=== PATIENT | female | born 1940 | race Caucasian/White ===

== ENCOUNTER 2017-05-20 13:52 | Inpatient (IN) ==
[2017-05-20] MEDS ORDERED: Nystatin Cream 15 GM TUBE TP PRN (18:54)
[2017-05-20] MEDS ORDERED: (Alendronate Sodium [Fosamax] 70 MG) PO SCH (19:00)
[2017-05-20] MEDS ORDERED: Insulin DETEMIR 100 UNIT/ML per UNIT SQ ONE (21:09)
[2017-05-20] MEDS: Gabapentin 400 MG CAPSULE PO SCH (21:47)
[2017-05-20] MEDS: traMADol 50 MG TABLET PO PRN (21:48)
[2017-05-20] MEDS: Famotidine 20 MG TABLET PO SCH (22:20)
[2017-05-20] MEDS: Budesonide/Formoterol 160/4.5 MDI IH SCH (22:22)
[2017-05-20] MEDS: (Diclofenac Sodium [Voltaren] 1 APPL) TP SCH (22:22)
[2017-05-21 06:30] LABS: Basophils % 0.4 %; Eosinophils # 0.1 K/mcL (0.0-0.6); Eosinophils % 0.8 %; Hematocrit 28.2 % (35.3-44.9); Hemoglobin 8.3 g/dL (11.5-15.4); Immature Granulocytes % 0.5 % (0-4); Lymphocytes # 1.2 K/mcL (0.6-4.6); Lymphocytes % 15.5 %; Mean Corpuscular HGB Conc 29.4 g/dL (31.6-35.5); Mean Corpuscular Hemoglobin 24.2 pg (28.0-33.3); Mean Corpuscular Volume 82.2 fL (83.0-100.0); Mean Platelet Volume 10.5 fL (9.4-12.4); Monocytes # 0.6 K/mcL (0.0-1.3); Neutrophils # 5.7 K/mcL (1.6-8.9); Platelet Count 144 K/mcL (140-400); Red Blood Count 3.43 M/mcL (3.82-4.97); Red Cell Distribution Width 24.5 % (11.5-14.5); Segmented Neutrophils % 74.8 %
[2017-05-21 06:41] LABS: Prothrombin Time 11.1 Seconds (9.4-12.1)
[2017-05-21 06:42] LABS: Activated Partial Thrombo Time 26.1 Seconds (26.0-36.0)
[2017-05-21 06:50] LABS: BUN/Creatinine Ratio 43 (6-26); Blood Urea Nitrogen 40 mg/dL (7-20); Calcium 7.6 mg/dL (8.6-10.8); Carbon Dioxide 39 mEq/L (19-29); Chloride 92 mEq/L (98-109); Glucose 217 mg/dL (70-99); Osmolality,Calculated 312 (280-300); Potassium 3.4 mEq/L (3.5-4.5); Sodium 143 mEq/L (136-145); eGFR For African Americans > 60 (> 60); eGFR For Non-African Americans 58 (> 60)
[2017-05-21 07:49] LABS: Anisocytosis 1+ (Not Present); Hypochromasia Present (Not Present); Microcytosis Present (Not Present)
[2017-05-21] MEDS: Insulin LISPRO 300 UNITS/3 ML VIAL SQ SCH ×3 (08:02→17:01)
[2017-05-21] MEDS: Famotidine 20 MG TABLET PO SCH (08:07)
[2017-05-21] MEDS: *HR* SitaGLIPtin 25 MG TABLET PO SCH (08:07)
[2017-05-21] MEDS: *HR* GlipiZIDE XL (24 HR) 10 MG TABLET PO SCH (08:07)
[2017-05-21] MEDS: Bumetanide 1 MG TABLET PO SCH (08:07)
[2017-05-21] MEDS: Gabapentin 400 MG CAPSULE PO SCH ×3 (08:07→20:28)
[2017-05-21] MEDS: *HR* Metformin 500 MG TABLET PO SCH (08:08)
[2017-05-21] MEDS ORDERED: Iron Polysaccharide Complex 150 MG CAPSULE PO SCH (09:00)
[2017-05-21] MEDS ORDERED: JANUMET PO SCH (09:00)
[2017-05-21] MEDS: Insulin DETEMIR 100 UNIT/ML X5UNITS SQ SCH ×2 (09:10→20:27)
[2017-05-21] MEDS: (Diclofenac Sodium [Voltaren] 1 APPL) TP SCH ×4 (09:12→20:29)
[2017-05-21] MEDS: Budesonide/Formoterol 160/4.5 MDI IH SCH ×2 (10:33→22:37)
[2017-05-21] MEDS: traMADol 50 MG TABLET PO PRN ×2 (14:04→22:09)
[2017-05-21] MEDS ORDERED: SODIUM CHLORIDE 0.9% IVPB ONE (17:44)
[2017-05-21] MEDS ORDERED: IRON DEXTRAN COMPLEX IVPB ONE (17:44)
--- NOTE | 2017-05-21 17:48 | Internal Med History&Physical ---
Date of Encounter: 05/21/17 Time of Encounter: 17:15 Assessment and Plan (1) COPD (chronic obstructive pulmonary disease) Current visit: No Status: Chronic We will use BiPAP and continue pulmonary regimen of Symbicort and when necessary albuterol nebs Qualifiers: COPD type: emphysema Emphysema type: unspecified Qualified Code(s): J43.9 - Emphysema, unspecified (2) Obesity hypoventilation syndrome Current visit: No Status: Chronic Continue BiPAP (3) Hypothyroid Current visit: No Status: Chronic TSH was normal at 3.270 on 04/23/2017. Continue present dose Synthroid Qualifiers: Hypothyroidism type: acquired Qualified Code(s): E03.9 - Hypothyroidism, unspecified (4) Diastolic CHF Current visit: No Status: Chronic Continue Coreg and Cozaar. I have changed her Lasix to Bumex. Qualifiers: Congestive heart failure chronicity: chronic Qualified Code(s): I50.32 - Chronic diastolic (congestive) heart failure (5) Anemia Current visit: No Status: Chronic Anemia testing done March 2017 showed findings consistent with iron deficiency. I will stop oral iron replacement and give IV iron dextran since she is on H2 cherie and is likely not absorbing much oral iron. Qualifiers: Anemia type: iron deficiency Iron deficiency anemia type: chronic blood loss Qualified Code(s): D50.0 - Iron deficiency anemia secondary to blood loss (chronic) (6) Hypertension Current visit: No Status: Chronic Continue Bumex, Coreg, and Cozaar Qualifiers: Hypertension type: essential hypertension Qualified Code(s): I10 - Essential (primary) hypertension (7) Diabetes mellitus Current visit: No Status: Chronic Hemoglobin A1c was 7.8% on 04/22/2017. Continue Levemir, metformin, Januvia, and Accu-Cheks with SSI. Qualifiers: Diabetes mellitus type: type 2 Diabetes mellitus complication status: without complication Diabetes mellitus jail insulin use: with jail use Qualified Code(s): E11.9 - Type 2 diabetes mellitus without complications ; Z79.4 - terminal clerk (current) use of insulin Internal Medicine - H&P: HPI Chief complaint: Dyspnea Admitted From: Hospital to Hospital Transfer Plans for Post Hospital Care: Home History of present illness: Ms. Dominique is a 76 year old female who was transferred to [facility] swing bed from [facility] [place] after a May 17 admission there for dyspnea. She had been discharged from [facility] to a [facility] SNF developed hypoxia within hours and required transfer to [facility] [place]. She underwent BiPAP qualification testing was discharged to [facility] swing bed for rehabilitation therapy prior to returning to independent living at home. Her cardiovascular history is significant for hypertension. She has heart failure with preserved EF. Echocardiogram 04/22/2017 showed LVEF of 60% with moderate LV diastolic dysfunction. There was no significant valvular abnormalities seen. She has paroxysmal atrial fibrillation. She denies DVT, pulmonary embolus or [place]. Her respiratory history significant for having smoked approximately 10 years quitting approximately 20 years ago. She has a diagnosis COPD and wears oxygen 24/7. She gets dyspneic on exertion and uses a walker. She has chronic respiratory failure and uses BiPAP. Past Med Surg Social Fam HX - Past Medical History Medical history: arthritis, asthma, cancer, CHF, COPD, diabetes, hyperlipidemia , hypertension, osteoporosis Psychiatric history: no psych history - Past Surgical History Surgical History: cancer surgery - Social History Smoking Status: Former smoker Smokeless Tobacco Status: No Alcohol use: none Drug use: none - Family History Mother Family Member Ethnicity: Non- Living Status: Hx Family Cardiac Disorders: Yes ([place]) Hx Family Endocrine Disorder: Yes (DM) Father Family Member Ethnicity: Non- Living Status: Hx Family Cardiac Disorders: Yes (HTN) Hx Family Endocrine Disorder: Yes (DM) Brother Family Member Ethnicity: Non- Living Status: Age at : 81 Cause of : diabetes Hx Family Cardiac Disorders: Yes ([place]) Hx Family Endocrine Disorder: Yes (Diabetes) Sister Family Member Ethnicity: Non- Living Status: Still Living Hx Family Cardiac Disorders: Yes (Afib) Internal Medicine - H&P: Meds Gabapentin [Neurontin] 400 mg PO TID 06/16/15 [History] Budesonide/Formoterol 160/4.5 [Symbicort] 2 puff IH BIDR #1 inhaler 06/23/15 [Rx ] Atorvastatin Calcium [Lipitor] 20 mg PO DAILY 02/26/17 [History] Montelukast [Singulair] 10 mg PO DAILY 02/26/17 [History] Oxygen 2 - 3 l NS CONT 02/26/17 [History] Tramadol HCl [Ultram] 50 mg PO Q8HR PRN 02/26/17 [History] Levothyroxine [Synthroid] 175 mcg PO DAILY 04/21/17 [History] Alendronate Sodium [Fosamax] 70 mg PO QWEEK 05/17/17 [History] Carvedilol [Coreg] 6.25 mg PO BID 05/17/17 [History] Diclofenac Sodium [Voltaren] 1 appl TP QID 05/17/17 [History] GlipiZIDE [Glipizide Xl] 20 mg PO DAILY 05/17/17 [History] Insulin Glargine,Hum.rec.anlog [Lantus Solostar] 40 unit SQ BID 05/17/17 [ History] Iron Polysaccharide Complex [Ferrex 150] 150 mg PO DAILY 05/17/17 [History] Losartan [Cozaar] 25 mg PO DAILY 05/17/17 [History] Nitroglycerin [Nitrostat] 0.4 mg SL AD PRN 05/17/17 [History] Nystatin Cream [Mycostatin Cream] 1 appl TP BID PRN 05/17/17 [History] Ranitidine HCl [Zantac] 150 mg PO BID 05/17/17 [History] Sitagliptin Phos/Metformin HCl [Janumet 50-1,000 mg Tablet] 1 tab PO DAILY 05/17 [History] Allergies Sulfa (Sulfonamide Antibiotics) Allergy (Verified 05/17/17 15:31) Rash sulfamethoxazole [From Bactrim] Allergy (Verified 04/21/17 19:58) Rash trimethoprim [From Bactrim] Allergy (Verified 04/21/17 19:58) Rash All Systems PM: A 10-system review of systems was performed and is negative for pertinent findings except as documented above in the HPI. Review of systems: Gen.: Her weight has increased approximately 50 pounds in the past year which she attributes to fluid retention Cardiovascular: As per history of present illness Respiratory: As per history of present illness GI: She has had cholecystectomy. She had pancreatitis on one occasion in the past. She has GERD. She denies disorders of her liver or exocrine pancreas : She has CKD stage III. She denies other kidney or bladder disorders Neurologic: She denies large distribution strokes or seizures. She has a diagnosis of diabetic peripheral neuropathy Endocrine: She was diagnosed with DM 2 approximately age 51. She has had a goiter resection and has resultant hypothyroidism. She has history of hyperlipidemia Hematology/oncology: She had colon cancer with partial colon resection 2007. She had right breast cancer with lumpectomy followed by XRT in 2007. She states she is cancer free at this time. She has history of anemia. Psychiatric: She denies anxiety depression or other mental health issues Musk skeletal: She has DJD but denies gout or other bone joint or muscle disorders. - Constitutional Vitals: Temp Pulse Resp BP Pulse Ox 98.4 F 63 19 124/55 95 05/21/17 07:43 05/21/17 16:59 05/21/17 13:02 05/21/17 16:59 05/21/17 16:59 Exam: Gen.: She is a well-developed morbidly obese female sitting in a chair who appears in no severe distress at present time HEENT: Head is atraumatic and normal cephalic. Eyes: She has mild exophthalmus bilaterally. Her gaze is conjugate. There is no scleral icterus. Mouth: Mucosa is moist. Neck: Supple and nontender. There is no thyromegaly or adenopathy noted. There is a well-healed scar at the base of the neck anteriorly from previous goiter resection. Heart: Regular without murmurs gallops or ectopics Lungs: No wheezes or crackles are heard. Abdomen: Soft and nontender. No masses or guarding are noted. She has a very large pannus. Extremities: There is mild erythema of the lower legs more on the left than the right. She has 2-3+ edema of the dorsum of the feet and lower anterior shins bilaterally. Dorsalis pedis and posterior tibial pulses are nonpalpable. Neurologic: Mental status: She is talkative and a good historian. Cranial nerves: Smile is symmetric. Forehead wrinkles bilaterally. Tongue protrudes midline. EOMI. Motor: There is no pronator drift. Cerebellar: Fair to nose is intact bilaterally. Skin: Warm and dry Internal Med - H&P Results - Labs CBC & Chem 7: 05/21/17 05:38 05/21/17 05:38 Labs: Short CBC 05/21/17 Range/Units 05:38 WBC 7.6 (4.3-11.1) K/mcL Hgb 8.3 L (11.5-15.4) g/dL Hct 28.2 L (35.3-44.9) % Plt Count 144 (140-400) K/mcL Neutrophils # 5.7 (1.6-8.9) K/mcL [facility] 05/21/17 05:38 Sodium 143 Potassium 3.4 L Chloride 92 L Carbon Dioxide 39 H BUN 40 H Creatinine 0.93 Glucose 217 H Calcium 7.6 L
[2017-05-21] MEDS: Magnesium Oxide 400 MG TABLET PO SCH (20:29)
[2017-05-22] MEDS: *HR* Metformin 500 MG TABLET PO SCH ×2 (08:23→10:56)
[2017-05-22] MEDS: Magnesium Oxide 400 MG TABLET PO SCH ×2 (08:23→20:17)
[2017-05-22] MEDS: Bumetanide 1 MG TABLET PO SCH (08:23)
[2017-05-22] MEDS: *HR* GlipiZIDE XL (24 HR) 10 MG TABLET PO SCH ×2 (08:23→10:56)
[2017-05-22] MEDS: Gabapentin 400 MG CAPSULE PO SCH ×3 (08:23→20:18)
[2017-05-22] MEDS: *HR* SitaGLIPtin 25 MG TABLET PO SCH ×2 (08:24→10:57)
[2017-05-22] MEDS: (Diclofenac Sodium [Voltaren] 1 APPL) TP SCH ×4 (08:26→22:52)
[2017-05-22] MEDS: traMADol 50 MG TABLET PO PRN ×2 (08:39→16:33)
[2017-05-22] MEDS: Insulin LISPRO 300 UNITS/3 ML VIAL SQ SCH ×3 (08:41→16:44)
[2017-05-22] MEDS: Budesonide/Formoterol 160/4.5 MDI IH SCH ×2 (10:14→21:56)
[2017-05-22] MEDS ORDERED: SODIUM CHLORIDE 0.9% IVPB ONE (10:30)
[2017-05-22] MEDS ORDERED: IRON DEXTRAN COMPLEX IVPB ONE (10:30)
--- NOTE | 2017-05-22 11:20 | Internal Med Progress Note ---
Date of Encounter: 05/22/17 Time of Encounter: 10:50 - Assessment and plan (1) COPD (chronic obstructive pulmonary disease) Current Visit: No Status: Chronic Assessment and plan: May 22. Continue BiPAP, Symbicort, and when necessary albuterol nebs Qualifiers: COPD type: emphysema Emphysema type: unspecified Qualified Code(s): J43.9 - Emphysema, unspecified (2) Obesity hypoventilation syndrome Current Visit: No Status: Chronic Assessment and plan: May 22. Continue BiPAP at bedtime (3) Hypothyroid Current Visit: No Status: Chronic Assessment and plan: May 22. TSH was normal at 3.270 on 04/23/2017. Continue Synthroid Qualifiers: Hypothyroidism type: acquired Qualified Code(s): E03.9 - Hypothyroidism, unspecified (4) Diastolic CHF Current Visit: No Status: Chronic Assessment and plan: May 22. Continue Coreg, Cozaar, and Bumex. Qualifiers: Congestive heart failure chronicity: chronic Qualified Code(s): I50.32 - Chronic diastolic (congestive) heart failure (5) Anemia Current Visit: No Status: Chronic Assessment and plan: May 22. She will receive IV iron dextran today. Will monitor CBC Qualifiers: Anemia type: iron deficiency Iron deficiency anemia type: chronic blood loss Qualified Code(s): D50.0 - Iron deficiency anemia secondary to blood loss (chronic) (6) Hypertension Current Visit: No Status: Chronic Assessment and plan: May 22. Continue Bumex, Coreg, and Cozaar Qualifiers: Hypertension type: essential hypertension Qualified Code(s): I10 - Essential (primary) hypertension (7) Diabetes mellitus Current Visit: No Status: Chronic Assessment and plan: May 22. Hemoglobin A1c was 7.8% on 04/22/2017. Continue Levemir, metformin, Januvia, and Accu-Cheks with SSI. 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 She has no new complaints and feels better overall. - Constitutional Vitals: Temp Pulse Resp BP Pulse Ox 99.2 F 60 16 149/71 99 05/22/17 09:35 07/27/17 09:35 05/22/17 10:18 05/22/17 09:35 05/22/17 10:18 Exam: She is sitting in a chair at bedside. Her affect is bright and cheerful. Note slight weight decrease. Blood sugars, medications, and lab results were reviewed Internal Medicine: Result - Labs CBC & Chem 7: 05/21/17 05:38 05/21/17 05:38 - ABG Interpretation ABG results: PT/INR, D-dimer PT 11.1 Seconds (9.4-12.1) 05/21/17 05:38 Consult Discharge Plan - Plan Referrals: Rui Lang MD [Primary Care Provider] - 1 week
[2017-05-22] MEDS: Insulin DETEMIR 100 UNIT/ML X5UNITS SQ SCH ×2 (12:34→20:17)
[2017-05-23] MEDS: traMADol 50 MG TABLET PO PRN ×4 (02:00→23:02)
[2017-05-23] MEDS: Insulin LISPRO 300 UNITS/3 ML VIAL SQ SCH ×3 (07:49→16:57)
[2017-05-23] MEDS: Magnesium Oxide 400 MG TABLET PO SCH ×2 (07:57→20:02)
[2017-05-23] MEDS: Bumetanide 1 MG TABLET PO SCH (07:57)
[2017-05-23] MEDS: *HR* Metformin 500 MG TABLET PO SCH (07:58)
[2017-05-23] MEDS: *HR* SitaGLIPtin 25 MG TABLET PO SCH (07:58)
[2017-05-23] MEDS: Gabapentin 400 MG CAPSULE PO SCH (07:58)
[2017-05-23] MEDS: *HR* GlipiZIDE XL (24 HR) 10 MG TABLET PO SCH (08:05)
[2017-05-23] MEDS: Budesonide/Formoterol 160/4.5 MDI IH SCH ×2 (09:03→21:08)
--- NOTE | 2017-05-23 09:17 | Internal Med Progress Note ---
Date of Encounter: 05/23/17 Time of Encounter: 09:10 - Assessment and plan (1) COPD (chronic obstructive pulmonary disease) Current Visit: No Status: Chronic Assessment and plan: May 22. Continue BiPAP, Symbicort, and when necessary albuterol nebs Qualifiers: COPD type: emphysema Emphysema type: unspecified Qualified Code(s): J43.9 - Emphysema, unspecified (2) Obesity hypoventilation syndrome Current Visit: No Status: Chronic Assessment and plan: May 22. Continue BiPAP at bedtime (3) Hypothyroid Current Visit: No Status: Chronic Assessment and plan: May 22. TSH was normal at 3.270 on 04/23/2017. Continue Synthroid Qualifiers: Hypothyroidism type: acquired Qualified Code(s): E03.9 - Hypothyroidism, unspecified (4) Diastolic CHF Current Visit: No Status: Chronic Assessment and plan: May 22. Continue Coreg, Cozaar, and Bumex. May 23. We will add Lanoxin to present regimen Qualifiers: Congestive heart failure chronicity: chronic Qualified Code(s): I50.32 - Chronic diastolic (congestive) heart failure (5) Anemia Current Visit: No Status: Chronic Assessment and plan: May 22. She will receive IV iron dextran today. Will monitor CBC May 23. We will recheck labs in a.m. Qualifiers: Anemia type: iron deficiency Iron deficiency anemia type: chronic blood loss Qualified Code(s): D50.0 - Iron deficiency anemia secondary to blood loss (chronic) (6) Hypertension Current Visit: No Status: Chronic Assessment and plan: May 22. Continue Bumex, Coreg, and Cozaar Qualifiers: Hypertension type: essential hypertension Qualified Code(s): I10 - Essential (primary) hypertension (7) Diabetes mellitus Current Visit: No Status: Chronic Assessment and plan: May 22. Hemoglobin A1c was 7.8% on 04/22/2017. Continue Levemir, metformin, Januvia, and Accu-Cheks with SSI. Qualifiers: Diabetes mellitus type: type 2 Diabetes mellitus complication status: without complication Diabetes mellitus local company intermodal truck driver insulin use: with residential use Qualified Code(s): E11.9 - Type 2 diabetes mellitus without complications ; Z79.4 - group home (current) use of insulin - Subjective Interval history: May 22. She has no new complaints and feels better overall. May 23. She has no new complaints and feels she is improved - Constitutional Vitals: Temp Pulse Resp BP Pulse Ox 98.0 F 59 15 94/58 96 05/23/17 07:00 05/23/17 07:00 05/23/17 09:08 05/23/17 07:00 05/23/17 09:08 Exam: Her edema is minimally changed in her legs. Her legs are elevated. There is lessening of the erythema. She is not dyspneic sitting in a chair. I reviewed her medications and lab results. Internal Medicine: Result - Labs CBC & Chem 7: 05/21/17 05:38 05/21/17 05:38 - ABG Interpretation ABG results: PT/INR, D-dimer PT 11.1 Seconds (9.4-12.1) 05/21/17 05:38 Consult Discharge Plan - Plan Referrals: Rui Lang MD [Primary Care Provider] - 1 week
[2017-05-23] MEDS: *HR* Digoxin 0.125 MG TABLET PO SCH ×2 (09:36→13:28)
[2017-05-23] MEDS: (Diclofenac Sodium [Voltaren] 1 APPL) TP SCH ×5 (09:40→20:02)
[2017-05-23] MEDS: Insulin DETEMIR 100 UNIT/ML X5UNITS SQ SCH ×2 (09:40→20:02)
[2017-05-23] MEDS: Gabapentin 300 MG CAPSULE PO SCH ×2 (15:47→20:02)
[2017-05-24] MEDS: traMADol 50 MG TABLET PO PRN ×3 (05:11→20:52)
[2017-05-24 05:17] LABS: Basophils % 0.3 %; Eosinophils # 0.4 K/mcL (0.0-0.6); Eosinophils % 5.2 %; Hematocrit 28.4 % (35.3-44.9); Hemoglobin 8.2 g/dL (11.5-15.4); Immature Granulocytes % 0.6 % (0-4); Lymphocytes # 1.2 K/mcL (0.6-4.6); Lymphocytes % 16.4 %; Mean Corpuscular HGB Conc 28.9 g/dL (31.6-35.5); Mean Corpuscular Hemoglobin 24.7 pg (28.0-33.3); Mean Corpuscular Volume 85.5 fL (83.0-100.0); Mean Platelet Volume 10.4 fL (9.4-12.4); Monocytes # 0.5 K/mcL (0.0-1.3); Monocytes % 7.2 %; Platelet Count 131 K/mcL (140-400); Red Blood Count 3.32 M/mcL (3.82-4.97); Red Cell Distribution Width 25.2 % (11.5-14.5); Segmented Neutrophils % 70.3 %
[2017-05-24 05:43] LABS: Alanine Aminotransferase 13 Units/L (0-55); Albumin 2.9 g/dL (3.5-5.0); Alkaline Phosphatase 70 Units/L (38-126); Aspartate Amino Transferase 9 Units/L (5-34); BUN/Creatinine Ratio 34 (6-26); Bilirubin,Total 0.5 mg/dL (0.2-1.2); Blood Urea Nitrogen 28 mg/dL (7-20); Calcium 8.6 mg/dL (8.6-10.8); Carbon Dioxide 36 mEq/L (19-29); Chloride 97 mEq/L (98-109); Glucose 100 mg/dL (70-99); Magnesium 2.2 mg/dL (1.6-2.6); Osmolality,Calculated 302 (280-300); Potassium 4.2 mEq/L (3.5-4.5); Sodium 143 mEq/L (136-145); Total Protein 5.9 g/dL (6.0-8.3); eGFR For African Americans > 60 (> 60); eGFR For Non-African Americans > 60 (> 60)
[2017-05-24 05:58] LABS: Anisocytosis 1+ (Not Present); Basophilic Stippling 1+ (Not Present); Hypochromasia Present (Not Present)
[2017-05-24] MEDS: Insulin LISPRO 300 UNITS/3 ML VIAL SQ SCH ×3 (07:40→15:42)
[2017-05-24] MEDS: *HR* GlipiZIDE XL (24 HR) 10 MG TABLET PO SCH (07:41)
[2017-05-24] MEDS: *HR* Digoxin 0.125 MG TABLET PO SCH ×2 (07:47→17:32)
[2017-05-24] MEDS: Bumetanide 1 MG TABLET PO SCH (07:48)
[2017-05-24] MEDS: *HR* SitaGLIPtin 25 MG TABLET PO SCH (07:48)
[2017-05-24] MEDS: *HR* Metformin 500 MG TABLET PO SCH (07:48)
[2017-05-24] MEDS: Magnesium Oxide 400 MG TABLET PO SCH ×2 (07:49→20:52)
[2017-05-24] MEDS: Gabapentin 300 MG CAPSULE PO SCH ×3 (07:49→20:51)
[2017-05-24] MEDS: (Diclofenac Sodium [Voltaren] 1 APPL) TP SCH ×4 (08:29→20:52)
[2017-05-24] MEDS: Insulin DETEMIR 100 UNIT/ML X5UNITS SQ SCH ×2 (09:08→20:51)
[2017-05-24] MEDS: Budesonide/Formoterol 160/4.5 MDI IH SCH ×2 (10:34→22:59)
[2017-05-25] MEDS: *HR* Digoxin 0.125 MG TABLET PO SCH ×2 (08:13→17:03)
[2017-05-25] MEDS: Insulin LISPRO 300 UNITS/3 ML VIAL SQ SCH ×3 (08:13→16:57)
[2017-05-25] MEDS: *HR* GlipiZIDE XL (24 HR) 10 MG TABLET PO SCH (08:19)
[2017-05-25] MEDS: Magnesium Oxide 400 MG TABLET PO SCH ×2 (08:19→22:44)
[2017-05-25] MEDS: *HR* SitaGLIPtin 25 MG TABLET PO SCH (08:20)
[2017-05-25] MEDS: Bumetanide 1 MG TABLET PO SCH (08:20)
[2017-05-25] MEDS: Insulin DETEMIR 100 UNIT/ML X5UNITS SQ SCH ×2 (08:20→22:46)
[2017-05-25] MEDS: *HR* Metformin 500 MG TABLET PO SCH (08:20)
[2017-05-25] MEDS: Gabapentin 300 MG CAPSULE PO SCH ×2 (08:20→22:43)
[2017-05-25] MEDS: traMADol 50 MG TABLET PO PRN ×3 (08:27→22:44)
[2017-05-25] MEDS: (Diclofenac Sodium [Voltaren] 1 APPL) TP SCH ×5 (09:00→22:46)
--- NOTE | 2017-05-25 09:47 | Internal Med Progress Note ---
Date of Encounter: 05/25/17 Time of Encounter: 09:30 - Assessment and plan (1) COPD (chronic obstructive pulmonary disease) Current Visit: No Status: Chronic Assessment and plan: May 22. Continue BiPAP, Symbicort, and when necessary albuterol nebs Qualifiers: COPD type: emphysema Emphysema type: unspecified Qualified Code(s): J43.9 - Emphysema, unspecified (2) Obesity hypoventilation syndrome Current Visit: No Status: Chronic Assessment and plan: May 22. Continue BiPAP at bedtime (3) Hypothyroid Current Visit: No Status: Chronic Assessment and plan: May 22. TSH was normal at 3.270 on 04/23/2017. Continue Synthroid Qualifiers: Hypothyroidism type: acquired Qualified Code(s): E03.9 - Hypothyroidism, unspecified (4) Diastolic CHF Current Visit: No Status: Chronic Assessment and plan: May 22. Continue Coreg, Cozaar, and Bumex. May 23. We will add Lanoxin to present regimen May 25. Continue present regimen. Will check labs in a.m. Qualifiers: Congestive heart failure chronicity: chronic Qualified Code(s): I50.32 - Chronic diastolic (congestive) heart failure (5) Anemia Current Visit: No Status: Chronic Assessment and plan: May 22. She will receive IV iron dextran today. Will monitor CBC May 23. We will recheck labs in a.m. May 25. We will check labs in a.m. Qualifiers: Anemia type: iron deficiency Iron deficiency anemia type: chronic blood loss Qualified Code(s): D50.0 - Iron deficiency anemia secondary to blood loss (chronic) (6) Hypertension Current Visit: No Status: Chronic Assessment and plan: May 22. Continue Bumex, Coreg, and Cozaar Qualifiers: Hypertension type: essential hypertension Qualified Code(s): I10 - Essential (primary) hypertension (7) Diabetes mellitus Current Visit: No Status: Chronic Assessment and plan: May 22. Hemoglobin A1c was 7.8% on 04/22/2017. Continue Levemir, metformin, Januvia, and Accu-Cheks with SSI. Qualifiers: Diabetes mellitus type: type 2 Diabetes mellitus complication status: without complication Diabetes mellitus regional intermodal truck driver insulin use: with custodial use Qualified Code(s): E11.9 - Type 2 diabetes mellitus without complications ; Z79.4 - shelter (current) use of insulin - Subjective Interval history: May 22. She has no new complaints and feels better overall. May 23. She has no new complaints and feels she is improved May 25. She has no new complaints. - Constitutional Vitals: Temp Pulse Resp BP Pulse Ox 98.4 F 57 18 119/61 97 05/25/17 06:55 05/25/17 06:55 05/25/17 06:55 05/25/17 06:55 05/25/17 08:51 Exam: She is sitting in a chair at bedside with her feet on the floor. Her edema is minimally changed. Her affect is bright and cheerful. I reviewed her medications and lab results. Internal Medicine: Result - Labs CBC & Chem 7: 05/24/17 04:58 05/24/17 04:58 - ABG Interpretation ABG results: PT/INR, D-dimer PT 11.1 Seconds (9.4-12.1) 05/21/17 05:38 Consult Discharge Plan - Plan Referrals: Rui Lang MD [Primary Care Provider] - 1 week
[2017-05-25] MEDS: Budesonide/Formoterol 160/4.5 MDI IH SCH ×2 (10:36→22:52)
[2017-05-26 05:38] LABS: Basophils % 0.3 %; Eosinophils # 0.4 K/mcL (0.0-0.6); Eosinophils % 5.5 %; Hematocrit 28.4 % (35.3-44.9); Hemoglobin 8.3 g/dL (11.5-15.4); Immature Granulocytes % 0.4 % (0-4); Lymphocytes # 1.1 K/mcL (0.6-4.6); Mean Corpuscular HGB Conc 29.2 g/dL (31.6-35.5); Mean Corpuscular Hemoglobin 25.2 pg (28.0-33.3); Mean Corpuscular Volume 86.1 fL (83.0-100.0); Mean Platelet Volume 10.2 fL (9.4-12.4); Monocytes # 0.5 K/mcL (0.0-1.3); Monocytes % 7.4 %; Platelet Count 131 K/mcL (140-400); Red Cell Distribution Width 25.4 % (11.5-14.5); Segmented Neutrophils % 70.4 %
[2017-05-26] MEDS: traMADol 50 MG TABLET PO PRN ×3 (05:51→20:28)
[2017-05-26 05:56] LABS: BUN/Creatinine Ratio 27 (6-26); Blood Urea Nitrogen 26 mg/dL (7-20); Carbon Dioxide 36 mEq/L (19-29); Chloride 95 mEq/L (98-109); Glucose 153 mg/dL (70-99); Magnesium 2.1 mg/dL (1.6-2.6); Osmolality,Calculated 302 (280-300); Potassium 4.6 mEq/L (3.5-4.5); Sodium 142 mEq/L (136-145); eGFR For African Americans > 60 (> 60); eGFR For Non-African Americans 57 (> 60)
[2017-05-26 06:05] LABS: Digoxin < 0.3 ng/mL (0.8-2.0)
[2017-05-26 06:07] LABS: Hypochromasia Present (Not Present)
[2017-05-26 06:08] LABS: Microcytosis Present (Not Present); Poikilocytosis 1+ (Not Present)
[2017-05-26 06:10] LABS: Anisocytosis 3+ (Not Present)
[2017-05-26 06:12] LABS: Basophilic Stippling 1+ (Not Present)
[2017-05-26 06:16] LABS: Platelet Estimate Slight Decrease (Normal)
[2017-05-26] MEDS: Insulin LISPRO 300 UNITS/3 ML VIAL SQ SCH ×3 (07:38→17:02)
[2017-05-26] MEDS: Bumetanide 1 MG TABLET PO SCH (08:19)
[2017-05-26] MEDS: *HR* GlipiZIDE XL (24 HR) 10 MG TABLET PO SCH (08:19)
[2017-05-26] MEDS: Magnesium Oxide 400 MG TABLET PO SCH ×2 (08:19→20:27)
[2017-05-26] MEDS: *HR* Metformin 500 MG TABLET PO SCH (08:19)
[2017-05-26] MEDS: *HR* SitaGLIPtin 25 MG TABLET PO SCH (08:19)
[2017-05-26] MEDS: *HR* Digoxin 0.125 MG TABLET PO SCH (08:20)
[2017-05-26] MEDS: Gabapentin 300 MG CAPSULE PO SCH ×2 (08:20→20:28)
[2017-05-26] MEDS: Budesonide/Formoterol 160/4.5 MDI IH SCH ×2 (09:56→22:59)
[2017-05-26] MEDS: Insulin DETEMIR 100 UNIT/ML X5UNITS SQ SCH ×2 (10:08→20:28)
[2017-05-26] MEDS: (Diclofenac Sodium [Voltaren] 1 APPL) TP SCH ×4 (10:09→20:29)
[2017-05-27] MEDS: Budesonide/Formoterol 160/4.5 MDI IH SCH ×2 (08:46→20:46)
[2017-05-27] MEDS: Insulin LISPRO 300 UNITS/3 ML VIAL SQ SCH ×3 (09:00→17:54)
[2017-05-27] MEDS: *HR* Metformin 500 MG TABLET PO SCH (09:01)
[2017-05-27] MEDS: Insulin DETEMIR 100 UNIT/ML X5UNITS SQ SCH ×2 (09:01→20:39)
[2017-05-27] MEDS: *HR* Digoxin 0.125 MG TABLET PO SCH (09:02)
[2017-05-27] MEDS: *HR* GlipiZIDE XL (24 HR) 10 MG TABLET PO SCH (09:02)
[2017-05-27] MEDS: Gabapentin 300 MG CAPSULE PO SCH ×2 (09:02→20:38)
[2017-05-27] MEDS: Bumetanide 1 MG TABLET PO SCH (09:02)
[2017-05-27] MEDS: Magnesium Oxide 400 MG TABLET PO SCH ×2 (09:02→20:38)
[2017-05-27] MEDS: *HR* SitaGLIPtin 25 MG TABLET PO SCH (09:02)
[2017-05-27] MEDS: (Diclofenac Sodium [Voltaren] 1 APPL) TP SCH ×4 (09:03→20:39)
--- NOTE | 2017-05-27 15:08 | Internal Med Progress Note ---
Date of Encounter: 05/27/17 Time of Encounter: 12:05 - Assessment and plan (1) COPD (chronic obstructive pulmonary disease) Current Visit: No Status: Chronic Assessment and plan: May 22. Continue BiPAP, Symbicort, and when necessary albuterol nebs May 27. She will continue BiPAP during hospitalization and at discharge. CPAP was tried and failed. GERDA was ruled out. She will require oxygen at 3 L/ m bled in the BiPAP with settings of IPAP/EPAP of 12 cm/6 cm. She has diagnosis of COPD with respiratory failure and wears oxygen at home 19/05. Qualifiers: COPD type: emphysema Emphysema type: unspecified Qualified Code(s): J43.9 - Emphysema, unspecified (2) Obesity hypoventilation syndrome Current Visit: No Status: Chronic Assessment and plan: May 22. Continue BiPAP at bedtime May 27. Continue BiPAP as per above note this date (3) Hypothyroid Current Visit: No Status: Chronic Assessment and plan: May 22. TSH was normal at 3.270 on 04/23/2017. Continue Synthroid Qualifiers: Hypothyroidism type: acquired Qualified Code(s): E03.9 - Hypothyroidism, unspecified (4) Diastolic CHF Current Visit: No Status: Chronic Assessment and plan: May 22. Continue Coreg, Cozaar, and Bumex. May 23. We will add Lanoxin to present regimen May 25. Continue present regimen. Will check labs in a.m. Qualifiers: Congestive heart failure chronicity: chronic Qualified Code(s): I50.32 - Chronic diastolic (congestive) heart failure (5) Anemia Current Visit: No Status: Chronic Assessment and plan: May 22. She will receive IV iron dextran today. Will monitor CBC May 23. We will recheck labs in a.m. May 25. We will check labs in a.m. May 27. Hemoglobin stable at 8.3. Qualifiers: Anemia type: iron deficiency Iron deficiency anemia type: chronic blood loss Qualified Code(s): D50.0 - Iron deficiency anemia secondary to blood loss (chronic) (6) Hypertension Current Visit: No Status: Chronic Assessment and plan: May 22. Continue Bumex, Coreg, and Cozaar Qualifiers: Hypertension type: essential hypertension Qualified Code(s): I10 - Essential (primary) hypertension (7) Diabetes mellitus Current Visit: No Status: Chronic Assessment and plan: May 22. Hemoglobin A1c was 7.8% on 04/22/2017. Continue Levemir, metformin, Januvia, and Accu-Cheks with SSI. Qualifiers: Diabetes mellitus type: type 2 Diabetes mellitus complication status: without complication Diabetes mellitus intermodal truck driver insulin use: with retirement use Qualified Code(s): E11.9 - Type 2 diabetes mellitus without complications ; Z79.4 - [facility] (current) use of insulin - Subjective Interval history: May 22. She has no new complaints and feels better overall. May 23. She has no new complaints and feels she is improved May 25. She has no new complaints. May 27. She has no new complaints - Constitutional Vitals: Temp Pulse Resp BP Pulse Ox 97.9 F 57 16 129/57 98 05/27/17 11:30 05/27/17 11:30 05/27/17 11:30 05/27/17 11:30 05/27/17 11:30 Exam: Her affect is bright and cheerful. I reviewed her medications and lab results. Internal Medicine: Result - Labs CBC & Chem 7: 05/26/17 04:30 05/26/17 04:30 - ABG Interpretation ABG results: PT/INR, D-dimer PT 11.1 Seconds (9.4-12.1) 05/21/17 05:38 Consult Discharge Plan - Plan Referrals: Rui Lang MD [Primary Care Provider] - 06/03/17 1:45 pm (with Petra Wagoner CNP 06/03/17 at 1:45pm) Kain Porter MD [Partnered Physician] - 06/17/17 11:30 am (routine visit - supervisor microfilm duplicating unit 06/17/17 at 11:30am)
[2017-05-27] MEDS: traMADol 50 MG TABLET PO PRN ×2 (15:11→20:43)
[2017-05-27] MEDS ORDERED: Insulin LISPRO 300 UNITS/3 ML VIAL SQ SCH (21:00)
[2017-05-28] MEDS: traMADol 50 MG TABLET PO PRN (05:24)
[2017-05-28 06:33] VITALS: BP 137/58
--- NOTE | 2017-05-28 10:02 | Discharge Summary ---
Date of Encounter: 05/28/17 Time of Encounter: 09:50 - Discharge Diagnosis (1) COPD (chronic obstructive pulmonary disease) Priority: Primary Status: Chronic Qualifiers: COPD type: emphysema Emphysema type: unspecified Qualified Code(s): J43.9 - Emphysema, unspecified (2) Obesity hypoventilation syndrome Priority: Secondary Status: Chronic (3) Hypothyroid Priority: Secondary Status: Chronic Qualifiers: Hypothyroidism type: acquired Qualified Code(s): E03.9 - Hypothyroidism, unspecified (4) Diastolic CHF Priority: Secondary Status: Chronic Qualifiers: Congestive heart failure chronicity: chronic Qualified Code(s): I50.32 - Chronic diastolic (congestive) heart failure (5) Anemia Priority: Secondary Status: Chronic Qualifiers: Anemia type: iron deficiency Iron deficiency anemia type: chronic blood loss Qualified Code(s): D50.0 - Iron deficiency anemia secondary to blood loss (chronic) (6) Hypertension Priority: Secondary Status: Chronic Qualifiers: Hypertension type: essential hypertension Qualified Code(s): I10 - Essential (primary) hypertension (7) Diabetes mellitus Priority: Secondary Status: Chronic Qualifiers: Diabetes mellitus type: type 2 Diabetes mellitus complication status: without complication Diabetes mellitus terminal operations manager insulin use: with terminal operations manager use Qualified Code(s): E11.9 - Type 2 diabetes mellitus without complications ; Z79.4 - correction (current) use of insulin - Discharge Medications Prescriptions: Bumetanide [Bumex] 2 mg PO DAILY #60 tab Digoxin [Lanoxin] 0.125 mg PO DAILY #30 tab Gabapentin [Neurontin] 300 mg PO BID #60 Potassium Chloride 10 meq PO BIDWM #60 Home Medications: Budesonide/Formoterol 160/4.5 [Symbicort] 2 puff IH BIDR #1 inhaler 06/23/15 [Rx ] Atorvastatin Calcium [Lipitor] 20 mg PO DAILY 02/26/17 [History] Montelukast [Singulair] 10 mg PO DAILY 02/26/17 [History] Oxygen 2 - 3 l NS CONT 02/26/17 [History] Tramadol HCl [Ultram] 50 mg PO Q8HR PRN 02/26/17 [History] Levothyroxine [Synthroid] 175 mcg PO DAILY 04/21/17 [History] Alendronate Sodium [Fosamax] 70 mg PO QWEEK 05/17/17 [History] Carvedilol [Coreg] 6.25 mg PO BID 05/17/17 [History] Diclofenac Sodium [Voltaren] 1 appl TP QID 05/17/17 [History] GlipiZIDE [Glipizide Xl] 20 mg PO DAILY 05/17/17 [History] Insulin Glargine,Hum.rec.anlog [Lantus Solostar] 40 unit SQ BID 05/17/17 [ History] Losartan [Cozaar] 25 mg PO DAILY 05/17/17 [History] Nitroglycerin [Nitrostat] 0.4 mg SL AD PRN 05/17/17 [History] Nystatin Cream [Mycostatin Cream] 1 appl TP BID PRN 05/17/17 [History] Sitagliptin Phos/Metformin HCl [Janumet 50-1,000 mg Tablet] 1 tab PO DAILY 05/17 [History] Bumetanide [Bumex] 2 mg PO DAILY #60 tab 05/28/17 [Rx] Digoxin [Lanoxin] 0.125 mg PO DAILY #30 tab 05/28/17 [Rx] Gabapentin [Neurontin] 300 mg PO BID #60 05/28/17 [Rx] Potassium Chloride 10 meq PO BIDWM #60 05/28/17 [Rx] Ranitidine HCl [Zantac] 150 mg PO BID PRN #0 05/28/17 [Rx] Allergies/Adverse Reactions: Allergies Sulfa (Sulfonamide Antibiotics) Allergy (Verified 05/17/17 15:31) Rash sulfamethoxazole [From Bactrim] Allergy (Verified 04/21/17 19:58) Rash trimethoprim [From Bactrim] Allergy (Verified 04/21/17 19:58) Rash Date of admission: 05/20/17 18:02 Primary care physician: Rui Lang MD Consults: 05/20/17 18:26 Consult to Occupational Therapy [CONS] Routine Comment: Eval, Develop, and implement P.O.C. Reason for Consult: Eval, Develop, and implement P.O.C. Consult to Physical Therapy [CONS] Routine Comment: Eval, Develop, and Implement P.O.C. Reason for Consult: Eval, Develop, and implement P.O.C. Consult to Wharf Tally Clerk [CONS] Routine Reason for SW Consult: D/C planning - Patient Status Disposition: Home, Self-Care Functional capacity at discharge: uses cane/walker Overall status at discharge: patient is progressing back to baseline - Discharge Instructions Follow Up With: Rui Lang MD [Primary Care Provider] - 06/03/17 1:45 pm (with Petracamilo Wagoner CNP 06/03/17 at 1:45pm) Kain Porter MD [Partnered Physician] - 06/17/17 11:30 am (routine visit - dictating machine typist 06/17/17 at 11:30am) - Diet and Activity Activity: as per physical therapy, resume usual activities as tolerated, wear oxygen at all times Diet: diabetic diet Hospital course: Ms. Dominique is a 76 year old female who was transferred to [facility] swing bed from [facility] after a May 17 admission there for dyspnea. She had been discharged from [facility] to a [facility] but developed hypoxia within hours and required transfer to [facility]. She underwent BiPAP qualification testing and was discharged to [facility] swing bed for rehabilitation therapy prior to returning to independent living at home. Initial orders were written by the discharging physicians at [facility]. I saw her on May 21 and performed the swing bed history and physical. She continued use of BiPAP during her hospital stay. She will continue with BiPAP at home at settings of 10/01. She was given Bumex instead of Lasix and continued on Coreg and Cozaar. She had diuresis with weight decrease to 131.684 kg on the day of discharge and improvement in her dyspnea. She had residual edema on the day of discharge but was noncompliant in keeping her feet elevated. Anemia testing done in March 2017 showed iron deficiency. She was given IV iron dextran which was tolerated well. She had physical therapy and occupational therapy evaluations with ongoing intervention. She made satisfactory progress and on May 28 arrangements were completed for her to be discharged home. She will follow with her PCP Dr. Lang within 1 week. - Time Spent with Patient Total time spent providing and/or coordinating discharge services: - Constitutional Vitals: Temp Pulse Resp BP Pulse Ox 97.6 F 62 18 137/58 98 05/28/17 06:32 05/28/17 09:38 05/28/17 09:38 05/28/17 09:38 05/28/17 09:38
--- NOTE | 2017-05-28 10:11 | Physician Discharge Referral ---
Home Health/Hosp Referral Info Transfer to: Home Health Attending Provider: Garret Provider in Charge Post Discharge: PCP (Rui Lang M.D.) - Diagnosis (1) COPD (chronic obstructive pulmonary disease) Priority: Primary Status: Chronic (2) Obesity hypoventilation syndrome Priority: Secondary Status: Chronic (3) Hypothyroid Priority: Secondary Status: Chronic (4) Diastolic CHF Priority: Secondary Status: Chronic (5) Anemia Priority: Secondary Status: Chronic (6) Hypertension Priority: Secondary Status: Chronic (7) Diabetes mellitus Priority: Secondary Status: Chronic - Respiratory Orders Oxygen / L per min (2-4 L by nasal cannula to keep sat greater than 90%. Bleed O2 into BiPAP at bedtime. BiPAP settings of 12 cm/6 m.) Smoking Cessation: Smoking cessation has been advised. For more information, call the [place] Tobacco Quit Line at 4-307-USGE-NOW. - Diet/Nutrition Diet/Nutrition Orders: No Concentrated Sweets - Activity Activity Orders: Walker - Services Needed Following services are medically necessary services: Nursing, Home Health Aide, Physical Therapy, Occupational Therapy - Transfer Medications Prescriptions: Bumetanide [Bumex] 2 mg PO DAILY #60 tab Digoxin [Lanoxin] 0.125 mg PO DAILY #30 tab Gabapentin [Neurontin] 300 mg PO BID #60 Potassium Chloride 10 meq PO BIDWM #60 Home Medications: Budesonide/Formoterol 160/4.5 [Symbicort] 2 puff IH BIDR #1 inhaler 06/23/15 [Rx ] Atorvastatin Calcium [Lipitor] 20 mg PO DAILY 02/26/17 [History] Montelukast [Singulair] 10 mg PO DAILY 02/26/17 [History] Oxygen 2 - 3 l NS CONT 02/26/17 [History] Tramadol HCl [Ultram] 50 mg PO Q8HR PRN 02/26/17 [History] Levothyroxine [Synthroid] 175 mcg PO DAILY 04/21/17 [History] Alendronate Sodium [Fosamax] 70 mg PO QWEEK 05/17/17 [History] Carvedilol [Coreg] 6.25 mg PO BID 05/17/17 [History] Diclofenac Sodium [Voltaren] 1 appl TP QID 05/17/17 [History] GlipiZIDE [Glipizide Xl] 20 mg PO DAILY 05/17/17 [History] Insulin Glargine,Hum.rec.anlog [Lantus Solostar] 40 unit SQ BID 05/17/17 [ History] Losartan [Cozaar] 25 mg PO DAILY 05/17/17 [History] Nitroglycerin [Nitrostat] 0.4 mg SL AD PRN 05/17/17 [History] Nystatin Cream [Mycostatin Cream] 1 appl TP BID PRN 05/17/17 [History] Sitagliptin Phos/Metformin HCl [Janumet 50-1,000 mg Tablet] 1 tab PO DAILY 05/17 [History] Bumetanide [Bumex] 2 mg PO DAILY #60 tab 05/28/17 [Rx] Digoxin [Lanoxin] 0.125 mg PO DAILY #30 tab 05/28/17 [Rx] Gabapentin [Neurontin] 300 mg PO BID #60 05/28/17 [Rx] Potassium Chloride 10 meq PO BIDWM #60 05/28/17 [Rx] Ranitidine HCl [Zantac] 150 mg PO BID PRN #0 05/28/17 [Rx] Allergies/Adverse Reactions: Allergies Sulfa (Sulfonamide Antibiotics) Allergy (Verified 05/17/17 15:31) Rash sulfamethoxazole [From Bactrim] Allergy (Verified 04/21/17 19:58) Rash trimethoprim [From Bactrim] Allergy (Verified 04/21/17 19:58) Rash Certification: Further, I certify that my clinical findings support that this patient is homebound (i.e. absences from home require considerable and taxing effort and are for medical reasons or hoahaoism services or infrequently or short duration when for other reasons) because: Homebound Reason: Leaving home requires considerable and taxing effort due to condition (Impaired ambulatory ability secondary to heart failure and obesity) Attestation: My signature below is to certify that this patient is under my care and that I, or nurse practitioner, or a physician's medical assistant ob gyn working with me, has a face-to -face encounter with this patient.
[2017-05-28] MEDS: Insulin DETEMIR 100 UNIT/ML X5UNITS SQ SCH (10:20)
[2017-05-28] MEDS: Insulin LISPRO 300 UNITS/3 ML VIAL SQ SCH (10:20)
[2017-05-28] MEDS: Magnesium Oxide 400 MG TABLET PO SCH (10:21)
[2017-05-28] MEDS: *HR* GlipiZIDE XL (24 HR) 10 MG TABLET PO SCH (10:22)
[2017-05-28] MEDS: *HR* Metformin 500 MG TABLET PO SCH (10:22)
[2017-05-28] MEDS: *HR* SitaGLIPtin 25 MG TABLET PO SCH (10:22)
[2017-05-28] MEDS: *HR* Digoxin 0.125 MG TABLET PO SCH (10:22)
[2017-05-28] MEDS: (Diclofenac Sodium [Voltaren] 1 APPL) TP SCH (10:22)
[2017-05-28] MEDS: Bumetanide 1 MG TABLET PO SCH (10:22)
[2017-05-28] MEDS: Gabapentin 300 MG CAPSULE PO SCH (10:22)
== END 2017-05-28 12:05 | disposition home health service (06) | DRG 945 ==
LOC: INPPIK 18:02
PROVIDERS: ADMIT Internal Medicine; ATTEND Internal Medicine